=== PATIENT | female | born 1980 | race Caucasian/White ===

== ENCOUNTER 2023-05-21 12:37 | Emergency (ER) | payer OTHER, SELFPAY ==
[2023-05-21] VITALS (9 sets, daily range): BP systolic 105–135; BP diastolic 59–80; PULSE 73–88; RESP 14; TEMP 36.6; O2SAT 98–100; BMI 27.2
--- NOTE | 2023-05-21 | DI.US.S_ITS ---
PROCEDURE: US PELVIC COMPLETE INDICATIONS: RIGHT LOWER QUADRANT PAIN TECHNIQUE: Real-time scanning was performed of the pelvic organs, with image documentation. Additional endovaginal scanning was necessary due to incomplete visualization of the adnexal and endometrial structures by transabdominal scanning. COMPARISON: None. FINDINGS: Uterus: Surgically absent. Ovaries: The right ovary measures 3.2 x 2.2 x 2.6 cm, with a calculated ovarian volume of 9.6 cc. The left ovary measures 2.4 x 2.0 x 1.9 cm, with a calculated ovarian volume of 4.9 cc. The ovaries have a normal sonographic appearance. Less than 12 follicles can be seen in each ovary. No adnexal masses are seen. There is a simple right ovarian cyst which measures 3.1 x 2.2 x 2.6 cm. Normal blood flow is visualized within the bilateral ovaries. Other: No pathologic free abdominal or pelvic fluid. IMPRESSION: 1. Simple right ovarian cyst. This is within physiologic limits for size in a premenopausal female. 2. No findings to suggest ovarian torsion at this time; however intermittent torsion cannot be excluded. We strive to produce accurate, complete, and clear reports of imaging services. To assist us in improving patient care, this report was composed using standard report templates and voice recognition software. Therefore, it may contain abnormal punctuation, insertions and/or omissions. Occasional wrong-word or sound-alike substitutions may occur. Though we review the report and make efforts to correct it, we do recommend that the report be read carefully in proper context to recognize any text inaccuracies. Dictated by: April Ren M.D. on 05/21/2023 at 16:59 Approved by: April Ren M.D. on 05/21/2023 at 17:03
[2023-05-21 13:28] LABS: Add Manual Diff / Slide Review NO; Basophils Absolute Auto 0 /uL (0-100); Basophils Percent Auto 0.7 % (0-2); Eosinophils Absolute Auto 200 /uL (0-450); Eosinophils Percent Auto 3.5 % (2-4); Hematocrit 37.7 % (36-46); Lymphocytes Absolute Auto 1400 /uL (1100-4500); Lymphocytes Percent Auto 28.1 % (25-40); Mean Corpuscular HGB Conc 34.5 % (30-36); Mean Corpuscular Hemoglobin 30.7 PG (26-34); Mean Corpuscular Volume 89.1 fL (80-100); Monocytes Absolute Auto 300 /uL (0-900); Monocytes Percent Auto 6.1 % (3-14); Neutrophils Absolute Auto 3100 /uL (1500-7000); Neutrophils Percent Auto 61.6 % (50-75); Platelet Count 322 X10^3/uL (150-400); Red Blood Cell Count 4.23 X10^6/uL (4.0-5.2)
[2023-05-21 13:42] LABS: Alanine Aminotransferase 20 IU/L (<35); Albumin 4.5 g/dL (3.5-5.0); Albumin Globulin Ratio 1.3 (1.0-2.8); Alkaline Phosphatase 48 U/L (38-126); Aspartate Aminotransferase 20 IU/L (14-36); BUN Creatinine Ratio 9.1 (6-22); Bilirubin Total 0.5 mg/dL (0.2-1.3); Blood Urea Nitrogen 6 mg/dL (7-17); Calcium 9.3 mg/dL (8.4-10.2); Carbon Dioxide 24 mmol/L (22-32); Chloride 105 mmol/L (98-107); Estimated Glomerular Filt Rate > 60 mL/min (>60); Globulin 3.4 g/dL (1.7-4.1); Glucose 100 mg/dL (70-100); HEMOLYSIS < 15 (0-50); Lipase 92 U/L (23-300); Potassium 4.1 mmol/L (3.4-5.1); Sodium 138 mmol/L (137-145); Total Protein 7.9 g/dL (6.3-8.2)
--- NOTE | 2023-05-21 15:44 | DI.US.S_ITS ---
PROCEDURE: US ABDOMEN LIMITED INDICATIONS: RIGHT LOWER QUADRANT PAIN - RULE OUT APPENDICITIS TECHNIQUE: Real-time focused scanning was performed of the abdomen, with image documentation. COMPARISON: None. Findings/impression: Appendix is not visualized. Indeterminate cystic lesion versus fluid collection in the right lower quadrant, medial to the iliac vessels measuring 3.3 x 1.9 x 2.6 cm. Dictated by: Jhon Pike M.D. on 05/21/2023 at 16:49 Approved by: Jhon Pike M.D. on 05/21/2023 at 16:50
[2023-05-21] MEDS: KETOROLAC 30 MG/ML VIAL 15 MG IV (15:57)
[2023-05-21] MEDS: ONDANSETRON 4 MG/2 ML INJ IV (15:57)
--- NOTE | 2023-05-21 17:00 | ED_ITS ---
HPI - Abdominal Pain General Chief Complaint: Abdominal Pain Stated Complaint: Severe ABD pain Time Seen by Provider: 05/21/23 15:44 Source: patient Mode of arrival: Ambulatory Limitations: no limitations History of Present Illness HPI narrative: This is a 43-year-old female with complaint of lower abdominal pain more localized to the right lower quadrant but noted pain on both sides. Been going on for several days. No known fevers. She is had nausea but no vomiting. Patient states she had several diarrhea like bowel movements that were very yellow and dark but no black or bloody stools. She has some chronic urinary frequency, no new changes to urinary frequency. She states no vaginal bleeding or discharge. She has tried at home her home medications including her Compazine for nausea, methocarbamol, hyoscyamine without any improvement. 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 She takes medication for fibromyalgia and IBS. She states she thought initially might be a flare but this is much more painful and different symptomology. She denies pain is all over but more on the right but also in the flank. Home medications include Wellbutrin, Prilosec, rizatriptan for migraines, Compazine, methocarbamol as needed, hyoscyamine as needed. She is allergic to penicillin and adhesive/latex. No tobacco, occasional alcohol, no illicit. Related Data Home Medications Medication Instructions Recorded Confirmed lysberxlv-xsbquj-pirtzjog-scop PO .prn 04/17/22 04/17/22 [Hyoscamine] prochlorperazine Edisylate PO 04/17/22 04/17/22 [Compazine] rizatriptan 10 mg tablet 10 mg PO ONCE 04/17/22 04/17/22 venlafaxine 112.5 mg PO 04/17/22 04/17/22 Previous Rx's Medication Instructions Recorded amoxicillin 875 mg-potassium 1 tab PO BID #20 tabs 05/21/23 clavulanate 125 mg tablet meloxicam 7.5 mg tablet 7.5 mg PO BID PRN pain #14 tabs 05/21/23 Allergies Allergy/AdvReac Type Severity Reaction Status Date / Time Penicillins Allergy Unknown Hives Verified 05/21/23 12:49 adhesive AdvReac Unknown Verified 05/21/23 12:41 latex AdvReac Unknown ITCHING Verified 05/21/23 12:41 Review of Systems Review of Systems ROS Unobtainable: All systems reviewed & are unremarkable except as noted in HPI and below Patient History Social History Smoking Status: Never smoker Smoking Status: Never smoker alcohol intake frequency: a few times a week Substance Use Type: does not use Exam Narrative Exam Narrative: GENERAL: Alert and oriented x three, female in mild distress. HEENT: Head normocephalic, atraumatic, EOMI, pupils reactive, face symmetric, moist mucous membranes NECK: Supple, full range of motion CARDIOVASCULAR: Regular rate and rhythm without murmurs, rubs or gallops. RESPIRATORY: Breath sounds equal bilaterally, no wheezes rales or rhonchi. ABDOMEN: Soft, qmoc-qm-mwbahinz right lower quadrant tenderness. Nondistended. Normoactive bowel sounds all 4 quadrants. No guarding or rebound, rigidity, no mass : No CVA tenderness bilaterally. EXTREMITIES: Normal range of motion, no clubbing or edema. Neurovascularly intact NEUROLOGICAL: Cranial nerves II through XII grossly intact. Moving all extremities SKIN: Warm, dry, no petechiae, no rashes or lesions. Initial Vital Signs Initial Vital Signs: Vital Signs Temperature 97.8 F 05/21/23 12:40 Pulse Rate 85 05/21/23 12:40 Respiratory Rate 14 05/21/23 12:40 Blood Pressure 135/80 05/21/23 12:40 Pulse Oximetry 100 05/21/23 12:40 Oxygen Delivery Method Room Air 05/21/23 12:40 Course Orders Ordered: ED Orders 05/21/23 13:15 Complete Blood Count AUTO DIFF Stat Comprehensive Metabolic Panel Stat Lipase Stat 05/21/23 15:44 US abdomen limited Stat 05/21/23 17:03 CT abdomen pelvis w con Stat Ondansetron HCl (Ondansetron 4 Mg/2 Ml Inj) 4 mg IV NOW PRN PRN Reason: Nausea And Vomiting Last Admin: 05/21/23 15:57 Dose: 4 mg Documented By: FRANCESCA Discontinued Medications Amoxicillin/Clavulanate Potassium (Amoxicillin/Clav 875/125 Mg) 1 tab PO NOW ONE Stop: 05/21/23 18:32 Ketorolac Tromethamine (Ketorolac 30 Mg/Ml Vial) 15 mg IV NOW ONE Stop: 05/21/23 15:46 Last Admin: 05/21/23 15:57 Dose: 15 mg Documented By: FRANCESCA Vital Signs Vital signs: Vital Signs - 8 hr 05/21/23 12:40 05/21/23 15:39 05/21/23 15:40 Temperature 97.8 F Pulse Rate 85 88 88 Respiratory Rate 14 Blood Pressure 135/80 Pulse Oximetry 100 100 100 Oxygen Delivery Method Room Air 05/21/23 15:40 05/21/23 16:00 05/21/23 17:31 Temperature Pulse Rate 82 75 Respiratory Rate Blood Pressure 125/76 Pulse Oximetry 100 99 Oxygen Delivery Method 05/21/23 17:32 05/21/23 17:32 Temperature Pulse Rate 82 Respiratory Rate Blood Pressure 115/59 L Pulse Oximetry 98 Oxygen Delivery Method MDM - Abdominal Pain Lab Data 05/21/23 13:15 05/21/23 13:15 Labs: Lab Results 05/21/23 05/21/23 Range/Units 13:15 13:15 WBC 5.0 (4.5-11.0) X10^3/uL RBC 4.23 (4.0-5.2) X10^6/uL Hgb 13.0 (12.0-16.0) g/dL Hct 37.7 (36-46) % MCV 89.1 (80-100) fL MCH 30.7 (26-34) PG MCHC 34.5 (30-36) % RDW 13.0 (11.6-14.8) % Plt Count 322 (150-400) X10^3/uL Neut % (Auto) 61.6 (50-75) % Lymph % (Auto) 28.1 (25-40) % Doddridge % (Auto) 6.1 (3-14) % Eos % (Auto) 3.5 (2-4) % Baso % (Auto) 0.7 (0-2) % Neut # (Auto) 3100 (8596-4305) /uL Lymph # (Auto) 1400 (8580-8366) /uL Doddridge # (Auto) 300 (0-900) /uL Eos # (Auto) 200 (0-450) /uL Baso # (Auto) 0 (0-100) /uL Sodium 138 (137-145) mmol/L Potassium 4.1 (3.4-5.1) mmol/L Chloride 105 (98-107) mmol/L Carbon Dioxide 24 (22-32) mmol/L BUN 6 L (7-17) mg/dL Creatinine 0.66 (0.52-1.04) mg/dL Estimated GFR > 60 (>60) mL/min BUN/Creatinine Ratio 9.1 (6-22) Glucose 100 (70-100) mg/dL Calcium 9.3 (8.4-10.2) mg/dL Total Bilirubin 0.5 (0.2-1.3) mg/dL AST 20 (14-36) IU/L ALT 20 (<35) IU/L Alkaline Phosphatase 48 (38-126) U/L Total Protein 7.9 (6.3-8.2) g/dL Albumin 4.5 (3.5-5.0) g/dL Globulin 3.4 (1.7-4.1) g/dL Albumin/Globulin Ratio 1.3 (1.0-2.8) Lipase 92 (23-300) U/L Point of care testing: Urine Dip Bedside Urine Glucose Negative Bedside Urine Bilirubin - Negative Bedside Urine Ketone - Negative Urine Specific Dexter 1.010 Bedside Urine Occult Blood - Negative Bedside Urine pH 6.0 Bedside Urine Protein - Negative Bedside Urine Urobilinogen - Negative Bedside Urine Nitrite - Negative Bedside Urine Leukocytes - Negative Esterase Imaging Data US RLQ: Radiologist's Impression: [address] [address] Ultrasound Report Signed Patient: ISACC MOLIAN MR#: [id number] : 1980 Acct:[id number] Age/Sex: 43 / F Date of Service: 05/21/23 Loc: ED Accession Number: [id number] ?? Procedure: US abdomen limited Ordering Provider: Lorraine Dwyer D.O. PROCEDURE: US ABDOMEN LIMITED ? INDICATIONS:? RIGHT LOWER QUADRANT PAIN - RULE OUT APPENDICITIS ? TECHNIQUE:? Real-time focused scanning was performed of the abdomen, with image documentation.? ? COMPARISON:? None. ? Findings/impression:? Appendix is not visualized.? Indeterminate cystic lesion versus fluid collection in the right lower quadrant, medial to the iliac vessels measuring 3.3 x 1.9 x 2.6 cm. ? ? Dictated by: Jhon Pike M.D. on 05/21/2023 at 16:49 ? ? Approved by: Jhon Pike M.D. on 05/21/2023 at 16:50?? CT scan - abdomen/pelvis: Radiologist's Impression: Close Abdomen/Pelvis CT (Signed) Renan Man - 05/21/23 Abdomen Ultrasound (Signed) Jhon Pike - 05/21/23 Launch?[place] [address] CT Scan Report Signed Patient: ISACC MOLINA MR#: [id number] : 1980 Acct:[id number] Age/Sex: 43 / F Date of Service: 05/21/23 Loc: ED Accession Number: [id number] ?? Procedure: CT abdomen pelvis w con Ordering Provider: Lorraine Dwyer D.O. PROCEDURE:? CT ABDOMEN PELVIS W CON ? INDICATIONS:? RLQ pain ? TECHNIQUE:? After the administration of intravenous contrast, axial sections acquired from the lung bases to the pubic symphysis.? Coronal and sagittal reformats were performed.? F or radiation dose reduction, the following was used:? automated exposure control, adjustment of mA and/or kV according to patient size.? ? COMPARISON:? None. ? FINDINGS:? Image quality:? Excellent.? ? Lung bases:? 3 millimeter nodule in the posterior right lower lobe (series 3, image 9).? Suspect Samantha fundoplication of the GE junction. Heart:? No significant findings. ? ABDOMEN: Liver:? Unremarkable.? ? Gallbladder:? Unremarkable.? ? Biliary ducts:? Unremarkable.? ? Pancreas:? Unremarkable.? ? Spleen:? Unremarkable.? ? Adrenal Glands:? Unremarkable.? ? Kidneys and Ureters:? Unremarkable.? ? ? Stomach and Bowel:? There is an inflamed diverticulum of the sigmoid colon, associated wall thickening and pericolonic fat stranding (series 2, image 83).? No evidence perforation. Peritoneum:? No abnormal intraperitoneal fluid.? No free air.? ? Ventral Wall: ? No hernias.? Abdominal Nodes:? No retroperitoneal or mesenteric adenopathy by size criteria.? Vessels:? Aorta and inferior vena cava are normal in size.? ? PELVIS: Pelvic Organs:? Unremarkable.? ? Bladder:? Unremarkable.? ? Pelvic Nodes: No enlarged lymph nodes.? Miscellaneous: No hernias are seen. ? ? ? Bones:? Unremarkable.? IMPRESSION:? ? Uncomplicated sigmoid diverticulitis.? No evidence of perforation. ? 3 millimeter nodule in the posterior right lower lobe. Consider 12 month follow- up if at high risk for developing lung cancer, per Fleischner Society guidelines. ? ? Dictated by: Renan Man M.D. on 05/21/2023 at 18:13 ? ? Approved by: Renan Man M.D. on 05/21/2023 at 18:16?? MDM Narrative Medical decision making narrative: 43-year-old female with history of IBS who is had acute on chronic abdominal pain different than her typical flare. Labs including CBC, CMP, lipase show no major changes. BUN is 6, point of care urine is negative. Patient has had hysterectomy so did not have . Right lower quadrant ultrasound showed appendix not clearly visualized indeterminate cystic lesion versus fluid collection right lower quadrant medial 2 iliac vessels measuring 3.3 x 1.9 x 2.6 cm. Discussed with patient she does have a history of leiomyoma she is had diarrhea persistent abdominal pain she is overall hemodynamically stable but would like to obtain CT abdomen pelvis. Patient is agreeable. Imaging shows diveriticulitis, with abscess or perforation. 3mm right lung lobe nodule. Discussed the findings with patient, will start her on Augmentin. She has a penicillin allergy reportedly although she states it was the same time she had codeine and was not sure if it was the codeine and penicillin. She has had amoxicillin without issues in the past. Discussed will do Augmentin which is amoxicillin/clavulanic acid for 10 days. Meloxicam for pain management plus Tylenol PRN. Patient given 1st dose here. Did review lung nodule was found needs follow-up. Patient expressed understanding. Discussed return precautions all questions answered. Discharge Plan Departure Patient Disposition: Home Clinical Impression: Diverticulitis, Nodule of right lung Instructions: Diverticulitis Activity Restrictions/Additional Instructions: Your workup today shows sigmoid diverticulitis, this is treated typically with antibiotics. It also incidentally shows a 3 mm nodule in the right lower lung, recommended have 12 month follow-up with repeat imaging. Talk with your physician about follow-up. Take antibiotics until completed. You may take meloxicam 1 tablet every 12 hours as needed for pain and/or Tylenol up to a 1000 mg every 6 hours as needed for pain. Prescription sent to [facility]. Please return for fevers, rapidly worsening abdominal back or flank pain, lightheadedness or passing out, persistent vomiting or other new or concerning changes. Prescriptions: New amoxicillin-pot clavulanate 875-125 mg tablet 1 tab PO BID Qty: 20 0RF meloxicam 7.5 mg tablet 7.5 mg PO BID PRN (Reason: pain) Qty: 14 0RF No Action venlafaxine 112.5 mg PO rizatriptan 10 mg tablet 10 mg PO ONCE Rx Instructions: as a single dose prochlorperazine Edisylate [Compazine] PO rgybrjjqu-mqyqvu-awvoulcy-scop [Hyoscamine] PO .prn Referrals: Miscellaneous,Doctor, [Primary Care Provider] - Stand Alone Forms: Patient Portal/API, Work Release Note
--- NOTE | 2023-05-21 17:03 | DI.CT.S_ITS ---
PROCEDURE: CT ABDOMEN PELVIS W CON INDICATIONS: RLQ pain TECHNIQUE: After the administration of intravenous contrast, axial sections acquired from the lung bases to the pubic symphysis. Coronal and sagittal reformats were performed. For radiation dose reduction, the following was used: automated exposure control, adjustment of mA and/or kV according to patient size. COMPARISON: None. FINDINGS: Image quality: Excellent. Lung bases: 3 millimeter nodule in the posterior right lower lobe (series 3, image 9). Suspect Samantha fundoplication of the GE junction. Heart: No significant findings. ABDOMEN: Liver: Unremarkable. Gallbladder: Unremarkable. Biliary ducts: Unremarkable. Pancreas: Unremarkable. Spleen: Unremarkable. Adrenal Glands: Unremarkable. Kidneys and Ureters: Unremarkable. Stomach and Bowel: There is an inflamed diverticulum of the sigmoid colon, associated wall thickening and pericolonic fat stranding (series 2, image 83). No evidence perforation. Peritoneum: No abnormal intraperitoneal fluid. No free air. Ventral Wall: No hernias. Abdominal Nodes: No retroperitoneal or mesenteric adenopathy by size criteria. Vessels: Aorta and inferior vena cava are normal in size. PELVIS: Pelvic Organs: Unremarkable. Bladder: Unremarkable. Pelvic Nodes: No enlarged lymph nodes. Miscellaneous: No hernias are seen. Bones: Unremarkable. IMPRESSION: Uncomplicated sigmoid diverticulitis. No evidence of perforation. 3 millimeter nodule in the posterior right lower lobe. Consider 12 month follow-up if at high risk for developing lung cancer, per Fleischner Society guidelines. Dictated by: Renan Man M.D. on 05/21/2023 at 18:13 Approved by: Renan Man M.D. on 05/21/2023 at 18:16
[2023-05-21] MEDS: AMOXICILLIN/CLAV 875/125 MG 1 TAB PO (18:59)
--- NOTE | 2023-05-22 08:35 | PC.NURSE ---
[facility] called and requested a different prescription then amox d/t penicillin allergy. Dr. Reese reviewed the chart and prescribed Cipro 500mg BID x 7 days and Flagyl 500mg TID x 7 days
== END 2023-05-21 19:02 | disposition home or self-care (01) ==
PROVIDERS: Emergency Provider Emergency Medicine
DX: K57.92 Diverticulitis of intestine, part unspecified, without perforation or abscess without bleeding (principal); R91.1 Solitary pulmonary nodule
CPT/HCPCS: 36415; 74177; 76705; 76830; 76856; 80053; 81003; 83690; 85025; 93975; 96374; 96375; 99284; 99285; J1885; J2405; Q9967

== ENCOUNTER → 2024-06-13 15:19 | Outpatient (CLI) | payer OTHER, SELFPAY ==
--- NOTE | 2024-06-13 15:21 | DI.NM.S_ITS ---
PROCEDURE: NM EXERCISE TREADMILL NON NUC COMPARISON: None. INDICATIONS: SOB/HEART PALPITATIONS FINDINGS: Patient exercised per the standard Jonathan protocol. Test terminated secondary to fatigue. Total exercise time was 9 minutes 18 seconds. Maximal heart rate was 166 bpm which is 95% of max braided heart rate. Maximum blood pressure was 160/[place] [address]. KERWIN -13%. No ischemic changes noted. No arrhythmias present. No chest pains voiced. Normal heart rate and blood pressure response to exercise. IMPRESSION: Negative exercise treadmill stress test in terms of ischemia with above average exercise tolerance. Dictated by: Sukhi Diaz M.D. on 06/13/2024 at 16:23 Approved by: Sukhi Diaz M.D. on 06/13/2024 at 16:24
== END ==
PROVIDERS: PCP Student in an Organized Health Care Education/Training Program; Referring Provider Student in an Organized Health Care Education/Training Program; Visit Provider Student in an Organized Health Care Education/Training Program
DX: R06.02 Shortness of breath (principal); R00.2 Palpitations
CPT/HCPCS: 93017